=== PATIENT | male | born 1955 | race Caucasian/White ===

== ENCOUNTER → 2017-08-25 | Outpatient (CLI) | payer BC | END | disposition home or self-care (01) | LOC: PCVCIMAG 10:52 | DX: R00.1 Bradycardia, unspecified (principal); R55 Syncope and collapse | CPT/HCPCS: 93306 ==

== ENCOUNTER → 2017-11-30 | Outpatient (CLI) | payer BC ==
[~2017-11-30] MED LIST: REGADENOSON 0.4 MG/5 ML DISP.SYRIN. IV ONE
--- NOTE | 2017-11-30 18:52 | PCVCIMAG ---
APPROVED REPORT Imaging Protocol: Rest Tc-99m/Stress Tc-99m 1 day Study performed: 11/30/2017 10:04:14 Indication: Assess For Coronary Disease Post Pacemaker Placement, DM Patient Location: Out-Patient Stress Nurse: Yokasta Lara RN [place] Tech:CHELA Urena Ht: 6 ft 0 in Wt: 210 lbs BSA: 2.18 m2 HR: 60 bpm BP: 144/77 mmHg BMI: 28.4 Rhythm: NSR Medical History Medical History: Pacemaker in situ Medications: Amlodipine, Atorvastatin, HCTZ, Losartan, Mobic, Metformin, Primadone Allergies: No known drug allergies Cardiac Risk Factors: Age, HTN, Hyperlipidemia, Diabetes (non-insulin), Pacemaker Pretest Chest Pain Characteristics: No chest pain Exercise History: Sedentary Physical Disabilities: Gait disturbance Resting Data Rest SPECT myocardial perfusion imaging was performed in supine position 45 minutes following the intravenous injection of 11.2 mCi of Tc-99m Sestamibi. Time of rest injection: 914 Date: 11/30/2017 Administration Route: IV Administration Site: Right AC Pharmacologic Stress Pharmacologic stress test was performed by injecting Regadenoson 0.4 mg IV push over 10-15 seconds immediately followed by the intravenous injection of 32.5 mCi of Tc-99m Sestamibi. Time of stress injection: 5 Date: 11/30/2017 Administration Route: IV Administration Site: Right AC Gated Stress SPECT was performed 45 minutes after stress injection. The images were gated to evaluate regional wall motion and calculate left ventricular ejection fraction. Stress Test Details Stress Test: Pharmacologic stress testing performed using 0.4 mg of regadenoson per 5 mL given IV over 10 seconds. Reason for pharmacologic stress test: Pacemaker. HRMax Heart Rate (APMHR): 157 bpm Resting HR: 60 bpmTarget HR (85% APMHR): 133 bpm Max HR Achieved: 96 bpm % of APMHR: 61 Recovery HR: 75 bpm BP Resting BP: 144/77 mmHg Recovery BP: 147/82 mmHg ECG Resting ECG: Sinus Rhythm Stress ECG: Sinus Rhythm Arrhythmia: None Recovery ECG: Sinus Rhythm Clinical Reason for Termination: Completed protocol Stress Symptoms: Nausea, Lightheaded Exercise duration: 0 min 55 sec Symptoms resolved during recovery. Stress ECG Conclusion ECG: Non-ischemic Study Quality Study: Good Study Data Post stress, the left ventricular ejection was 58%.. SSS: 1 SRS: 1 SDS: 0 TID = 1.21. Perfusion No evidence of stress induced ischemia or prior myocardial infarction. Wall Motion Normal left ventricular size and function with no regional wall motion abnormalities. Nuclear Conclusion No evidence of stress induced ischemia or prior myocardial infarction. Normal left ventricular size and function with no regional wall motion abnormalities. Post stress, the left ventricular ejection was 58%. No prior study available for comparison. Interpreted by: Messi Campos MD Electronically Approved: 11/30/2017 18:49:29 <Conclusion> ECG: Non-ischemic
== END | disposition home or self-care (01) ==
LOC: PCVCIMAG 12:46
PROVIDERS: ATTEND Internal Medicine Cardiovascular Disease
DX: I10 Essential (primary) hypertension (principal)
CPT/HCPCS: 78452; 93017; A9500; J2785